=== PATIENT | female | born 1940 | race Caucasian/White ===

== ENCOUNTER 2020-06-14 12:53 | Emergency (ER) | payer MEDICARE, SELFPAY ==
[2020-06-14 13:03] VITALS: BP 142/82; PULSE 100; RESP 16; TEMP 37; O2SAT 94; BMI 37.8
--- NOTE | 2020-06-14 13:58 | PC.NURSE ---
Pt ambulatory in lobby, asking about wait time. Pt updated on wait, all questions answered. Pt waiting in lobby chair.
--- NOTE | 2020-06-14 14:10 | PC.NURSE ---
Blood drawn in , sent to lab. Pt updated on wait
--- NOTE | 2020-06-14 14:13 | XR_ITS ---
WS: [id number] Portable AP upright chest, 06/14/2020 Clinical Data: chest discomfort Comparison: None. Findings: No nodules, masses or effusions are seen. The heart is normal. The pulmonary vascularity is not increased. No pneumonia or pneumothorax is seen. The aortic arch and descending aorta are minima lly tortuous. XR/XR chest 1V portable [id number] Impression: Atherosclerosis.
--- NOTE | 2020-06-14 14:13 | ECG_ITS ---
[facility] Test Date: 2020-06-14 Pat Name: Tamy Manzanares Department: Room: Gender: Female Medication Nurse: : 1940 Requested By: Varinder Leone Order Number: [id number] Reading MD: JANELL BROWN Measurements Intervals [place] Rate: 112 P: [place]: QRS: 40 QRSD: 82 T: 27 QT: 327 QTc: 447 Interpretive Statements ATRIAL FIBRILLATION WITH RAPID VENTRICULAR RESPONSE LOW QRS VOLTAGE IN PRECORDIAL LEADS [QRS DEFLECTION < 1.0 mV IN CHEST LEADS] MODERATE ST DEPRESSION [0.05+ mV ST DEPRESSION] No previous ECG available for comparison Electronically Signed On 06-14-2020 20:41:59 CDT by JANELL BROWN [id number]
[2020-06-14 14:29] LABS: Basophils % 0.5 %; Eosinophils # 0.1 10^3/uL (0.0-0.8); Eosinophils % 1.9 %; Hematocrit 54.2 % (37.0-47.0); Hemoglobin 18.3 g/dL (11.5-15.3); Lymphocytes # 1.4 10^3/uL (0.8-4.8); Lymphocytes % 23.2 %; Mean Corpuscular HGB Conc 33.8 g/dL (30.0-36.0); Mean Corpuscular Hemoglobin 30.3 pg (28.0-34.0); Mean Corpuscular Volume 89.9 fL (81-99); Mean Platelet Volume 11.2 fL (7.4-10.4); Monocytes # 0.5 10^3/uL (0.2-0.9); Monocytes % 8.4 %; Neutrophils # 4.07 10^3/uL (1.8-7.7); Neutrophils % 65.5 %; Nucleated Red Blood Cells % 0 %; Platelet Count 210 10^3/cmm (130-400); Red Blood Count 6.03 10^6/uL (4.1-5.3); White Blood Count 6.2 10^3/uL (4.0-10.0)
[2020-06-14 14:59] LABS: Alanine Aminotransferase 26 U/L (0-33); Albumin Level 4.1 g/dL (3.5-5.2); Alkaline Phosphatase 56 IU/L (35-105); Anion Gap 15.2 (5-19); Aspartate Amino Transferase 24 U/L (0-32); Blood Urea Nitrogen 11 mg/dL (8-23); Carbon Dioxide 26 mmol/L (22-29); Chloride 98 mmol/L (98-107); Globulin 3.3 g/dL (1.3-4.6); Glucose 98 mg/dL (65-115); Osmolality Calculated 281 mOsm/kg (285-295); Potassium 3.2 mmol/L (3.5-5.1); Sodium 136 mmol/L (136-145); Total Bilirubin 0.6 mg/dL (0.15-1.2); Total Protein 7.4 g/dL (6.6-8.7)
[2020-06-14 15:01] LABS: Troponin(5th) Baseline 8 ng/L (0-10)
[2020-06-14 15:12] VITALS: BP 128/83; PULSE 90; PULSE 99; RESP 16; O2SAT 97
--- NOTE | 2020-06-14 15:17 | PC.NURSE ---
2hr EKG performed in triage room, given to physician. Pt again updated on wait. Pt back to WR
--- NOTE | 2020-06-14 16:13 | ECG_ITS ---
[facility] Test Date: 2020-06-14 Pat Name: Tamy Manzanares Department: Room: Gender: Female Digital Publishing Specialist: : 1940 Requested By: Varinder Leone Order Number: [id number] Reading MD: JANELL BROWN Measurements Intervals [place] Rate: 99 P: [place]: QRS: 38 QRSD: 80 T: 15 QT: 349 QTc: 450 Interpretive Statements ATRIAL FIBRILLATION LOW QRS VOLTAGE IN PRECORDIAL LEADS [QRS DEFLECTION < 1.0 mV IN CHEST LEADS] ABNORMAL RHYTHM ECG Compared to ECG 06/14/2020 13:02:11 ST (T wave) deviation no longer present Electronically Signed On 06-14-2020 20:43:30 CDT by JANELL BROWN [id number]
--- NOTE | 2020-06-14 16:24 | ED_ITS ---
HPI - Arrhythmia/Palpitations General: Chief Complaint: Arrhythmia/Palpitations Stated Complaint: CHEST PAIN Time Seen by Provider: 06/14/20 15:55 History of Present Illness: HPI narrative: 79-year-old female comes in stating she has been in A. fib for quite some time she has had some mild right shoulder and upper chest discomfort for the last several days is worse when she stands or moves her shoulders she is not really had what she would call pain she has been just not been short of breath no nausea or vomiting no diaphoresis. She takes baby aspirin daily and metoprolol. MD complaint: skipped beats and palpitations Onset (ago): day(s) Duration: intermittent Severity: mild Context: occurred during rest and occurred during exertion Arrhythmia history: atrial fibrillation Associated symptoms: Deny anxiety, cough, diaphoresis, muscle cramps, nausea, paresthesias, pre-syncope, sense of impending doom, short of breath, syncope or vomiting Review of Systems Const: Denies: diaphoresis ENMT: Denies: throat pain, ear or mastoid pain, nasal discharge or nasal congestion Card: Denies: syncope or pre-syncope Resp: Denies: dyspnea, productive cough or non-productive cough GI: Denies: nausea or vomiting : Denies: flank pain, difficulty voiding, dysuria, urinary frequency or urinary urgency Musc: Denies: muscle cramps Skin/Breast: Denies: rash or pruritus Psych: Denies: anxiety Physical Exam Const: COMMON NORMALS: no acute distress GENERAL APPEARANCE: cooperative and comfortable ORIENTATION/CONSCIOUSNESS: Yes awake, Yes oriented to person, Yes oriented to place and Yes oriented to time HENMT: COMMON NORMALS: normocephalic, atraumatic and hearing grossly normal bilaterally HEAD & SCALP: normocephalic and atraumatic Eye: COMMON NORMALS: Equal, round and reactive pupils present, EOMs intact bilaterally, conjunctivae normal and no scleral icterus CONJUNCTIVA: Yes conjunctivae normal PUPIL: Yes Equal, round and reactive pupils present Neck/C-Spine: COMMON NORMALS: no JVD Resp: COMMON NORMALS: normal respiratory effort, No retractions, No use of accessory muscles and clear to auscultation bilaterally AUSCULTATION: clear to auscultation bilaterally Cardio: COMMON NORMALS: no JVD, regular rate, regular rhythm and No murmurs present (Cardio) RATE: regular rate RHYTHM: regular rhythm GI: COMMON NORMALS: Soft to palpation and No hepatosplenomegaly present AUSCULTATION: Yes normoactive bowel sounds PALPATION: Yes Soft to palpation, No Tenderness to palpation present (GI), No Guarding due to palpation present (GI) and Yes No hepatosplenomegaly present Extremity: COMMON NORMALS: normal to inspection, capillary refill normal, no clubbing, cyanosis or edema, no calf tenderness and no pedal edema Neuro: SENSORIUM/ORIENTATION: Yes oriented to person, Yes oriented to place and Yes oriented to time Skin: COMMON NORMALS: no rashes or lesions noted GENERAL SKIN EXAM: no rashes or lesions noted Course Vital Signs: Vital signs: Vital Signs Temperature 98.6 F 06/14/20 13:03 Pulse Rate 91 06/14/20 17:15 Respiratory Rate 25 H 06/14/20 17:15 Blood Pressure 128/80 06/14/20 17:15 Pulse Oximetry 95 06/14/20 17:15 MDM - Arrhythmia/Palpitations MDM Narrative: Medical decision making narrative: Patient has noes particular complaints this time for the most part chest discomfort is gone her troponins are negative EKG shows A. fib she does have a little bit of hypertension and her heart rate is still up when increase her Toprol have her follow-up with her doctor next week return if has further problems. She has some very mild hypokalemia probably due to her hydrochlorothiazide. Lab Data: Labs: Lab Results 06/14/20 06/14/20 06/14/20 Range/Units 14:09 14:09 14:09 WBC 6.2 (4.0-10.0) 10^3/ uL RBC 6.03 H (4.1-5.3) 10^6/u L Hgb 18.3 H (11.5-15.3) g/dL Hct 54.2 H (37.0-47.0) % MCV 89.9 (81-99) fL MCH 30.3 (28.0-34.0) pg MCHC 33.8 (30.0-36.0) g/dL RDW 14.0 (12.1-15.1) % Plt Count 210 (130-400) 10^3/c mm MPV 11.2 H (7.4-10.4) fL Neut % (Auto) 65.5 % Lymph % (Auto) 23.2 % [place] % (Auto) 8.4 % Eos % (Auto) 1.9 % Baso % (Auto) 0.5 % Neut # (Auto) 4.07 (1.8-7.7) 10^3/u L Lymph # (Auto) 1.4 (0.8-4.8) 10^3/u L [place] # (Auto) 0.5 (0.2-0.9) 10^3/u L Eos # (Auto) 0.1 (0.0-0.8) 10^3/u L Baso # (Auto) 0.0 (0.0-0.1) 10^3/u L Nucleated RBC % (a uto) 0 % Nucleated RBCs # 0.0 /100WBC PT (12.1-14.9) SECO NDS INR (0.8-1.2) Sodium 136 (136-145) mmol/L Potassium 3.2 L (3.5-5.1) mmol/L Chloride 98 (98-107) mmol/L Carbon Dioxide 26 (22-29) mmol/L Anion Gap 15.2 (5-19) BUN 11 (8-23) mg/dL Creatinine 0.6 (0.5-0.9) mg/dL GFR Calculation Not Reportable Glucose 98 (65-115) mg/dL Calculated Osmolal ity 281 L (285-295) mOsm/k g Calcium 9.0 (8.5-10.5) mg/dL Total Bilirubin 0.6 (0.15-1.2) mg/dL AST 24 (0-32) U/L ALT 26 (0-33) U/L Alkaline Phosphata se 56 (35-105) IU/L Troponin T Baselin e 8 (0-10) ng/L Troponin T 120 Min [place] (0-10) ng/L Delta Troponin T (0-10) ABS# Total Protein 7.4 (6.6-8.7) g/dL Albumin 4.1 (3.5-5.2) g/dL Globulin 3.3 (1.3-4.6) g/dL 06/14/20 06/14/20 Range/Units 16:35 16:35 WBC (4.0-10.0) 10^3/ uL RBC (4.1-5.3) 10^6/u L Hgb (11.5-15.3) g/dL Hct (37.0-47.0) % MCV (81-99) fL MCH (28.0-34.0) pg MCHC (30.0-36.0) g/dL RDW (12.1-15.1) % Plt Count (130-400) 10^3/c mm MPV (7.4-10.4) fL Neut % (Auto) % Lymph % (Auto) % [place] % (Auto) % Eos % (Auto) % Baso % (Auto) % Neut # (Auto) (1.8-7.7) 10^3/u L Lymph # (Auto) (0.8-4.8) 10^3/u L [place] # (Auto) (0.2-0.9) 10^3/u L Eos # (Auto) (0.0-0.8) 10^3/u L Baso # (Auto) (0.0-0.1) 10^3/u L Nucleated RBC % (a uto) % Nucleated RBCs # /100WBC PT 14.20 (12.1-14.9) SECO NDS INR 1.07 (0.8-1.2) Sodium (136-145) mmol/L Potassium (3.5-5.1) mmol/L Chloride (98-107) mmol/L Carbon Dioxide (22-29) mmol/L Anion Gap (5-19) BUN (8-23) mg/dL Creatinine (0.5-0.9) mg/dL GFR Calculation Glucose (65-115) mg/dL Calculated Osmolal ity (285-295) mOsm/k g Calcium (8.5-10.5) mg/dL Total Bilirubin (0.15-1.2) mg/dL AST (0-32) U/L ALT (0-33) U/L Alkaline Phosphata se (35-105) IU/L Troponin T Baselin e (0-10) ng/L Troponin T 120 Min [place] 7.85 (0-10) ng/L Delta Troponin T -0.15 L (0-10) ABS# Total Protein (6.6-8.7) g/dL Albumin (3.5-5.2) g/dL Globulin (1.3-4.6) g/dL Discharge Plan Discharge Patient Disposition: Home Clinical Impression: Atrial fibrillation Condition: Stable Prescriptions: Changed metoprolol succinate 25 mg tablet extended release 24 hr 50 mg PO QAM Qty: 0 RF: 0 No Action levothyroxine 25 mcg capsule 25 mcg PO QAM RF: 0 multivitamin Tablet 1 tab PO DAILY RF: 0 Aspir-81 81 mg Tablet,Delayed Release (Dr/Ec) 81 mg PO QAM RF: 0 hydrochlorothiazide 25 mg tablet 25 mg PO QAM RF: 0 biotin 1,000 mcg Tablet,Chewable 1,000 mcg PO DAILY RF: 0 Discharge Orders: Discharge ED (Routine); Ordered 06/14/20 Ordered By: Varinder Acosta Referrals: Jayant Bang DO [Primary Care Provider] - Discharge Diet: Usual diet Discharge Activity: Increase activity as tolerated Patient Instructions: Opioid Safety Activity Restrictions/Additional Instructions: Aloe up with Dr. Bang within the next week. Coding Level of Care Code ED Political Science Instructor for Chg Fwd Exam Comprehensive
[2020-06-14 16:40] VITALS: BP 171/118; PULSE 99; O2SAT 95
[2020-06-14 17:00] LABS: Troponin 5 2HR 7.85 ng/L (0-10)
[2020-06-14 17:04] LABS: Troponin 5 2HR Delta -0.15 ABS# (0-10)
[2020-06-14 17:08] LABS: INR 1.07 (0.8-1.2)
[2020-06-14 17:15] VITALS: BP 128/80; PULSE 91; RESP 25; O2SAT 95
== END 2020-06-14 17:16 | disposition home or self-care (01) ==
PROVIDERS: Emergency Provider Family Medicine; PCP Internal Medicine
DX: I48.91 Unspecified atrial fibrillation (principal); Z79.82 Long term (current) use of aspirin
CPT/HCPCS: 36415; 71045; 80053; 84484; 85025; 85610; 93005; 99283

== ENCOUNTER 2020-08-02 13:17 | Outpatient (CLI) | payer MEDICARE, SELFPAY ==
--- NOTE | 2020-08-02 13:20 | USCV_ITS ---
Leighton Tamy Age: 79 Gender: F : 1940 Exam Date: 08/02/2020 13:41 Ordering Phys: Jayant Bang DO Technologist: Yuliet Germain Exam Location: [facility] [place] Indication: Moderate tricuspid regurgitation BP: 130 / 76 HR: 96 Rhythm: Sinus Technical Quality: Fair MEASUREMENTS (Male / Female) Normal Values 2D ECHO LV Diastolic Diameter PLAX 3.3 cm 4.2 - 5.9 / 3.9 - 5.3 cm LV Systolic Diameter PLAX 1.9 cm LV Chamber Size 4.4 cm IVS Diastolic Thickness 1.2 cm 0.6 - 1.0 / 0.6 - 0.9 cm IVS Systolic Thickness 1.5 cm LVPW Diastolic Thickness 0.9 cm 0.6 - 1.0 / 0.6 - 0.9 cm LVPW Systolic Thickness 1.3 cm RV Chamber Size 2.9 cm LVOT Diameter 1.8 cm LV Ejection Fraction 2D Teich 73.8 % LA Diameter 3.7 cm LA Width 3.3 cm LA Height 5.7 cm RA Width 3.0 cm RA Height 5.4 cm Aorta at Sinotubular Diameter 1.6 cm M-MODE LV Diastolic Diameter MM 3.1 cm 4.2 - 5.9 / 3.9 - 5.3 cm LV Systolic Diameter MM 2.1 cm LV Ejection Fraction MM Teich 61.2 % IVS Diastolic Thickness MM 1.1 cm 0.6 - 1.0 / 0.6 - 0.9 cm IVS Systolic Thickness MM 1.1 cm LVPW Diastolic Thickness MM 1.2 cm 0.6 - 1.0 / 0.6 - 0.9 cm LVPW Systolic Thickness MM 1.7 cm RV Diastolic Diameter MM 3.3 cm Aortic Annulus Diameter 1.8 cm LA Ao Ratio MM 2.0 MV E Point Septal Separation 0.3 cm DOPPLER AV Peak Velocity 139.0 cm/s LVOT Peak Velocity 93.0 cm/s AV Area Cont Eq vti 1.8 cm squared AV Area Cont Eq pk 1.6 cm squared MV Area PHT 4.0 cm squared MV E' Velocity 101.0 cm/s TR Peak Velocity 191.7 cm/s TR Peak Gradient 14.7 mmHg TR Mean Velocity 150.8 cm/s TR Mean Gradient 9.5 mmHg TR Velocity Time Integral 52.8 cm TV Peak E Velocity 72.0 cm/s Right Atrial Pressure 3.0 mmHg Pulmonary Artery Systolic Pressu 17.7 mmHg PV Peak Velocity 69.0 cm/s RV Acceleration Time 0.1 s RV Ejection Time 0.3 s RV AcT/ET 0.3 FINDINGS Left Ventricle Normal left ventricular cavity size. Normal left ventricular systolic function. No regional wall motion abnormalities. Left ventricular ejection fraction is estimated at 61 %. Right Ventricle The right ventricle is normal in size and function. Right Atrium The right atrium is normal in size. Left Atrium The left atrium is normal in size. Mitral Valve Structurally normal mitral valve without significant stenosis or prolapse. There is no mitral regurgitation. Aortic Valve Moderate aortic valve calcification. Moderate aortic valve stenosis, mean gradient 4.8 mmHg, MARINE 1.8 cm squared. Tricuspid Valve Moderate to severe tricuspid valve regurgitation. Pulmonic Valve Structurally normal pulmonic valve without significant stenosis. There is no pulmonic regurgitation. Pericardium Normal pericardium without effusion. Aorta Normal ascending aorta dimension. CONCLUSIONS 1-Normal left ventricular cavity size. Normal left ventricular systolic function. No regional wall motion abnormalities. Left ventricular ejection fraction is estimated at 61 %. 2-Moderate aortic valve calcification. Moderate aortic valve stenosis, mean gradient 4.8 mmHg, MARINE 1.8 cm squared. 3-Structurally normal mitral valve without significant stenosis or prolapse. There is no mitral regurgitation. 4-Moderate to severe tricuspid valve regurgitation. 5-There is no pericardial effusion. 6-No significant change since the prior echocardiogram study of 12/02/2018. Wen Pitt MD (Electronically Signed) Final Date: 03 August 2020 20:43 S
== END 2020-08-02 13:18 | disposition home or self-care (01) ==
PROVIDERS: PCP Internal Medicine; Visit Provider Internal Medicine
DX: I07.1 Rheumatic tricuspid insufficiency (principal); I35.0 Nonrheumatic aortic (valve) stenosis; I70.0 Atherosclerosis of aorta
CPT/HCPCS: 93306

== ENCOUNTER 2021-06-26 10:36 | Outpatient (CLI) | payer MEDICARE, SELFPAY ==
--- NOTE | 2021-06-26 10:43 | MM_ITS ---
WS: [id number] Bilateral screening 3D tomosynthesis digital mammogram, 06/26/2021 Clinical Data: SCREENING Comparison: 04/30/2017, 04/25/2015, 07/26/2013, 11/28/2011, 01/18/2010, 01/19/2009, 01/19/2008, 12/29/2006 , 12/08/2005, 12/27/2004, 11/15/2002. Findings: The breast parenchymal pattern shows heterogeneous tissue. No spiculated masses or clustered calcific ations are seen. There are no secondary signs of carcinoma. MM/[id number] Impression: 1. Negative bilateral mammogram unchanged. 2. Recommend annual screening mammograms. BIRADS: 1-Negative FOLLOW UP: 1 Year Follow-up The CAD work checker was used.
--- NOTE | 2021-06-26 11:38 | XR_ITS ---
WS: [id number] DEXA (DUAL ENERGY X-RAY ABSORPTIOMETRY) Bone mineral density was performed using a Yumber machine. HISTORY: POSTMENOPAUSAL COMPARISON: None available. Lumbar spine BMD (L1-L4): 1.212 g/cm2 T score: 0.3 Z score: 1.1 Total hip BMD: Left: 0.851 g/cm2. T score: -1.2 Z score: -0.1 Right: 0.828 g/cm2. T score: -1.4 Z score: -0.2 10 year probability of a major osteoporotic fracture is 27%. XR/XR DEXA axial skeleton* [id number] IMPRESSION: OSTEOPENIA based upon the WHO classification for females.
== END 2021-06-26 10:37 | disposition home or self-care (01) ==
LOC: RAD 10:38
PROVIDERS: PCP Internal Medicine; Visit Provider Nurse Practitioner
DX: Z12.31 Encounter for screening mammogram for malignant neoplasm of breast (principal); Z78.0 Asymptomatic menopausal state; M85.80 Other specified disorders of bone density and structure, unspecified site
CPT/HCPCS: 77063; 77067; 77080

== ENCOUNTER 2022-07-16 11:25 | Outpatient (CLI) | payer MEDICARE, SELFPAY ==
--- NOTE | 2022-07-16 11:32 | MM_ITS ---
WS: [id number] Bilateral screening 3D tomosynthesis digital mammogram, 07/16/2022 Clinical Data: SCREENING Comparison: 06/26/2021, 04/30/2017, 05/24/2015, 07/26/2013, 10/28/2011, 01/18/2010, 01/19/2009, 01/19/2008, at 12/06/2006, 12/07/2005, 12/27/2004, 10/15/2002. Findings: The breast parenchymal pattern shows heterogeneous density. No spiculated masses or clustered calcifi cations are seen. There are no secondary signs of carcinoma. There are lymph nodes in both axilla. MM/[id number] Impression: 1. Negative bilateral mammogram unchanged. 2. Recommend annual screening mammograms. BIRADS: 1-Negative FOLLOW UP: 1 Year Follow-up The CAD title checker was used.
== END 2022-07-16 11:26 | disposition home or self-care (01) ==
LOC: RAD 11:28
PROVIDERS: PCP Internal Medicine; Visit Provider Internal Medicine
DX: Z12.31 Encounter for screening mammogram for malignant neoplasm of breast (principal)
CPT/HCPCS: 77063; 77067

== ENCOUNTER → 2023-08-26 14:55 | Outpatient (BNVA) | payer MEDICARE, SELFPAY | PROVIDERS: PCP Internal Medicine; Referring Provider Internal Medicine; Visit Provider Specialist | DX: M17.0 Bilateral primary osteoarthritis of knee | CPT/HCPCS: 73560; 73565; 99204 ==